=== PATIENT | female | born 1935 | race Caucasian/White ===

== ENCOUNTER → 2017-12-22 | Outpatient (CLI) | payer OTHER ==
[~2017-12-22] MED LIST: BAYER CHEWABLE81 MG PO; BIAXIN 500 MG500 M1 PO; BONIVA150 MG PO; FISH OIL 1,001000 M2 PO; FLEXERIL PO; FUROSEMIDE 20 M20 M1 PO; K-DUR 20 MEQ T20 MEQ; KLOR-CON 1010 MEQ PO; LASIX 20 MG TAB20 MG; LEVAQUIN 500 M500 M2 PO; MEDROL4 MG PO; MELOXICAM15 MG PO; MIACALCIN; NEURONTIN 300M300 M2 PO; NORCO 5-325 TA1 EACH PO; PERCOCET PO; PRAVACHOL40 MG PO; PREDNISONE 10 M10 M1 PO; PROTONIX40 MG PO; TIROSINT100 MCG PO; VENTOLIN HFA 1818 GM; VENTOLIN HFA 1818 GM INH; VITAMIN D32000 UNI1 PO
== END | disposition home or self-care (01) ==
LOC: M.RAD 12-20 10:00
DX: M16.11 Unilateral primary osteoarthritis, right hip (principal); M19.90 Unspecified osteoarthritis, unspecified site; J45.909 Unspecified asthma, uncomplicated; E03.9 Hypothyroidism, unspecified; Z88.2 Allergy status to sulfonamides; Z88.8 Allergy status to other drugs, medicaments and biological substances; Z79.82 Long term (current) use of aspirin; Z79.899 Other long term (current) drug therapy; Z79.891 Long term (current) use of opiate analgesic; Z90.710 Acquired absence of both cervix and uterus; Z98.890 Other specified postprocedural states

== ENCOUNTER → 2018-05-02 | Outpatient (CLI) | payer OTHER ==
[~2018-05-02] MED LIST changes: +LIPITOR 20 MG T20 M1 PO; +OXYCONTIN10 M1 PO
--- NOTE | ~2018-05-02 | PAINCON ---
[address] [address] PAIN MANAGEMENT CONSULTATION Name: BARAK BORGES Room: [facility] KRISTEN Zacarias#: [id number] Admission: 05/02/18 Attend Phys: Jose Luis Gaffney MD Discharge: Date of : 35 Report #: [id number] THIS REPORT FOR: //name// CC: Rajani Gaffney DATE OF SERVICE: 05/02/2018 CHIEF COMPLAINT: Lumbar pain and hip pain. FOLLOWUP HISTORY: The patient is an 82-year-old female, who has been referred to the Pain Clinic for evaluation of hip pain. She is having pain and discomfort in the right hip. Also, she has knee pain and has had injections in her knees in the past. She rates her pain as a 6-7/10. She has had back surgery in the lumbar area. She complains of hip pain with arthritis. She also has an aching sensation in the arch of her left foot. She ambulates, but uses a wheelchair. She uses a walker while at home. She has been told that she is not a surgical candidate at this juncture, she is not a candidate for hip replacement. She is using gabapentin, meloxicam, and oxycodone to help control her pain. She feels that her pain is about 10% controlled with use of her medication. She has pain, which is exacerbated by activity, cold, walking, sitting, standing, climbing stairs, lifting, and bending. She notes that her pain is somewhat improved with use of medications. ALLERGIES: FENOPROFEN, SULFA, PRAVASTATIN, CLARITHROMYCIN, SIMVASTATIN, FLUVASTATIN, BONIVA, DETROL, VYTORIN. CURRENT MEDICATIONS: Albuterol inhaler 2 puffs p.r.n., aspirin 81 mg, Lipitor 20 mg, vitamin D3 2000 units, fish oil 1000 mcg 2 tablets twice daily, Lasix 20 mg, Neurontin 300 mg q.i.d., levothyroxine 0.1 mg, Meloxicam 15 mg, oxycodone 5/325 one p.o. q. 6 hours p.r.n., Protonix 40 mg, potassium 20 mEq. PAST MEDICAL HISTORY: Hypertension, bilateral lower extremity neuropathy, hyperlipidemia, osteoporosis, lumbar spinal stenosis, lumbar radiculopathy, bilateral lower extremity venous stasis, phlebitis. PAST SURGICAL HISTORY: Infrared coagulation of bilateral varicose veins, hysterectomy in 1984, carpal tunnel in 1979, left and right, two back surgeries L3 through S1 in 2010 in June and November, teeth surgery in 1968. 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 REVIEW OF SYSTEMS: She wears glasses, hearing loss, mouth sores, swelling of feet, bowel changes, painful bowels, frequent urination, thyroid disease, excessive thirst, cold intolerance, joint pain, joint stiffness, [place] [address] PAIN MANAGEMENT CONSULTATION Name: BARAK BORGES Room: [facility] Rell#: [id number] Admission: 05/02/18 Attend Phys: Jose Luis Gaffney MD Discharge: Date of : 35 Report #: [id number] weakness, muscle cramps, difficulty walking, change in hair and nails, varicose veins, numbness and tingling sensation, tremors, phlebitis. LABORATORY AND DIAGNOSTIC DATA: On 03/11/2017, hip and pelvis findings of severe arthritis or degenerative narrowing of the right hip joint space identified with fuwq-vu-fosz appearance and remodeling of both articular surfaces and bulky femoral head margin osteophytes. There is not an upright view, but does demonstrate possible pelvic tilt. The left hip space is not grossly narrowed. Surgical changes of the lower lumbar spine partially visualized. Impression: Advanced arthritis and degenerative narrowing of the right hip joint space. Possible pelvic tilt, which could be better assessed with upright. PAIN CLINIC ASSESSMENT/PQRS: 1. The patient has arthritic changes in her hip as well as in her knees. 2. The patient is not being treated for rheumatoid arthritis. 3. Height 5 feet 0 inches, weight 202 pounds, BMI is 39.6. 4. Blood pressure 134/72, heart rate 53, respiratory rate 16, room air saturation 98%, temperature is 97.8. 5. Pain intensity: 6-7/10. 6. Fall risk: The patient has not fallen in the last 3 months. 7. Blood thinner: The patient is not on a blood thinning medication. 8. Hypertension: The patient is being treated for hypertension. 9. Opioids greater than 6 weeks: The patient is using opioid medications to help control her pain. 10. Risk assessment tool: Low for opioid use. 11. Functional assessment tool. 12. Recreational drug use: The patient denies use of recreational drugs. 13. Tobacco: The patient denies use of tobacco. 14. Alcohol: The patient denies use of alcoholic beverages. PHYSICAL EXAMINATION: GENERAL: The patient is a well-developed, white female. She appears her stated age. She is somewhat obese. HEENT: Normocephalic, atraumatic. Extraocular eye muscles intact. The patient is wearing glasses. HEART: Regular rate. ABDOMEN: Nontender. MUSCULOSKELETAL: She complains of some pain and discomfort in the lower extremities, right leg with numbness and tingling, left leg numbness and tingling in the calf area as well. Upper extremity muscle strength is judged to be 4+/5 for the major muscle groups in the upper extremity. The patient is in a wheelchair. She complains of pain and discomfort in the right lower extremity as well as in the left knee, pain in the low back and buttocks area, posterior L5-S1 dermatomal distribution on both sides, increased pain [place] [address] PAIN MANAGEMENT CONSULTATION Name: BARAK BORGES Room: [facility].#: [id number] Admission: 05/02/18 Attend Phys: Jose Luis Gaffney MD Discharge: Date of : 35 Report #: [id number] IMPRESSION: 1. Chronic pain, osteoarthritic pain in the right hip with erhu-wn-jmlj. 2. Bilateral knee pain. 3. Hypertension. 4. Bilateral lower extremity neuropathy. 5. Hyperlipidemia. 6. Osteoporosis. 7. Lumbar spinal stenosis. 8. Lumbar radiculopathy. 9. Bilateral lower extremity venous stasis. 10. Phlebitis. RECOMMENDATIONS: We discussed treatment options with the patient. At this juncture, she is not a good candidate for surgery. She has ngce-tv-ajdf pain. We will supply the patient with OxyContin 10 mg 1 p.o. q. 12 hours. The patient can continue with Percocet 1 p.o. q. 4-6 hours p.r.n. Hopefully, the longer long-acting OxyContin medication will provide more pain relief. She will try this for the next week. Hopefully, she will find the pain is better maintained. The patient has been given a script for her medications. She will call us if she has any concerns. We would like to thank you for letting us participate in her care. We hope she continues to improve. By: [id number]. Lauro Gaffney MD /nt
== END ==
LOC: M.PC 09:40
DX: M54.16 Radiculopathy, lumbar region (principal); M48.061 Spinal stenosis, lumbar region without neurogenic claudication; M16.11 Unilateral primary osteoarthritis, right hip; M25.561 Pain in right knee; M25.562 Pain in left knee; M81.0 Age-related osteoporosis without current pathological fracture; G62.9 Polyneuropathy, unspecified; I10 Essential (primary) hypertension; I80.9 Phlebitis and thrombophlebitis of unspecified site; I87.2 Venous insufficiency (chronic) (peripheral); Z79.899 Other long term (current) drug therapy

== ENCOUNTER → 2018-06-01 | Outpatient (CLI) | payer OTHER ==
[~2018-06-01] MED LIST changes: +METHADONE HCL5 MG PO; +XTAMPZA ER9 MG PO
--- NOTE | ~2018-06-01 | PAINCON ---
[address] [address] PAIN MANAGEMENT CONSULTATION Name: BARAK BORGES Room: [facility] Rell#: [id number] Admission: 06/01/18 Attend Phys: Jose Luis Gafnfey MD Discharge: Date of : 35 Report #: [id number] THIS REPORT FOR: //name// CC: Rajani Gaffney DATE OF SERVICE: 06/01/2018 CHIEF COMPLAINT: Low back and hip pain. HISTORY: The patient is an 83-year-old female who has been seen in the pain clinic because of right hip pain. Also, has knee pain and has undergone injections. She has had back surgery. Complains of some hip pain with arthritis. Has a sensation of aching in the arch of her feet. Ambulates with use of wheelchair. Uses a walker while she is at home. The patient at this point, unfortunately is not a surgical candidate. She is not a candidate for hip replacement. She is being treated with a conservative approach using gabapentin, meloxicam, oxycodone to help control her pain. She has returned today for evaluation of her medications. ALLERGIES: FENOPROFEN, SULFA, PRAVASTATIN, CLARITHROMYCIN, SIMVASTATIN, FLUVASTATIN, BONIVA, DETROL, VYTORIN. CURRENT MEDICATIONS: Albuterol inhaler 2 puffs p.r.n., aspirin 81 mg, Lipitor 20 mg, vitamin D3 2000 units, fish oil 1000 mcg 2 tablets twice daily, Lasix 20 mg, Neurontin 300 mg q.i.d., levothyroxine 0.1 mg, Meloxicam 15 mg, oxycodone 5/325 one p.o. q. 6 hours, Protonix 40 mg, potassium 20 mEq. PAIN CLINIC ASSESSMENT AND PQRS: 1. The patient has arthritic changes involving her hip as well as her knees. She is not being treated for rheumatoid arthritis. 2. Height 5 feet 0 inches, weight 202 pounds, BMI is 39.6. 3. Vital Signs: Blood pressure 130/63, heart rate is 53, respiratory rate 16, room air saturation 98%, temperature 98. 4. Pain intensity 09/16. 5. Fall history. The patient has not fallen in the last 3 months. 6. Blood thinner. The patient is not on a blood thinning medication. 7. Hypertension. The patient is being treated for hypertension. 8. Opioids greater than 6 weeks. The patient is using opioid medications to help control her pain. 9. Risk assessment tool, low for opioid use. 10. Functional assessment tool. 11. Recreational drug use. The patient denies use of recreational drugs. 12. Tobacco: The patient denies use of tobacco. 13. Alcohol: The patient [place] [address] PAIN MANAGEMENT CONSULTATION Name: BARAK BORGES [id number] Admission: 06/01/18 Attend Phys: Jose Luis Gaffney MD Discharge: Date of : 35 Report #: [id number] PHYSICAL EXAMINATION: GENERAL: The patient is a well-developed, well-nourished white female. Appears her stated age. She is alert and oriented. She has a family member that is with her. She is wearing glasses. HEART: Regular rate. ABDOMEN: Nontender. MUSCULOSKELETAL: The patient complains of pain and discomfort in the lower extremities. Right leg has numbness and tingling. Left leg soreness with tingling into the calf area. Her upper extremity muscle strength is judged to be 4+/5 for the major muscle groups in the upper extremity. The patient is in a wheelchair. Complains of pain and discomfort in her right lower extremity as well as down into the left knee. Low back area and buttocks areas are areas of discomfort as well. The L5-S1 dermatomal distribution is problematic on both sides. Notes increased pain in the right hip. IMPRESSION: 1. Chronic pain, osteoarthritic pain in the right hip with sveu-ip-akvc problems. 2. Bilateral knee pain. 3. Hypertension. 4. Bilateral lower extremity neuropathy. 5. Hyperlipidemia. 6. Osteoporosis. 7. Lumbar spinal stenosis. 8. Lumbar radiculopathy. 9. Bilateral lower extremity venous stasis. 10. Phlebitis. RECOMMENDATIONS: We discussed treatment options with the patient. At this juncture, we will continue to increase the patient's medication as she is able to tolerate it. A script for OxyContin 10 mg 1 p.o. has been written. A 2 weeks of medication has been supplied to the patient, the patient will take a 5 mg of Percocet medication in the morning and OxyContin 10 mg. If she still has pain and discomfort in the evening, she will take an additional 5 mg, which would be a total of 20 mg of oxycodone per day. She will call us if she has any concerns. We would like to thank you for letting us participate in her care. We hope she continues to improve. By: [id number]. Lauro Gaffney MD /BARBY
== END ==
LOC: M.PC 04:22
DX: G89.29 Other chronic pain (principal); M16.11 Unilateral primary osteoarthritis, right hip; E78.5 Hyperlipidemia, unspecified; M81.0 Age-related osteoporosis without current pathological fracture; M54.16 Radiculopathy, lumbar region; M48.061 Spinal stenosis, lumbar region without neurogenic claudication; I10 Essential (primary) hypertension; M17.0 Bilateral primary osteoarthritis of knee; Z79.899 Other long term (current) drug therapy; Z88.8 Allergy status to other drugs, medicaments and biological substances; Z88.1 Allergy status to other antibiotic agents; Z79.891 Long term (current) use of opiate analgesic

== ENCOUNTER → 2018-07-04 | Outpatient (CLI) | payer OTHER ==
[~2018-07-04] MED LIST changes: +PERCOCET 5-3251 EACH PO
--- NOTE | 2018-07-06 01:33 | PAINCON ---
[address] [address] PAIN MANAGEMENT CONSULTATION Name: BARAK BORGES Room: [facility] KRISTEN Zacarias#: [id number] Admission: 07/04/18 Attend Phys: Jose Luis Gaffney MD Discharge: Date of : 35 Report #: [id number] THIS REPORT FOR: //name// CC: Rajani Gaffney DATE OF SERVICE: 07/04/2018 CHIEF COMPLAINT: Low back pain. HISTORY: The patient is an 83-year-old female who has been seen in the Pain Clinic because of chronic pain. She has pain in her knee. She has undergone injections. She has had back surgery. She continues to have some pain in her hip, associated with arthritis. She has pain in the arch of her feet. She ambulates using a wheelchair. She uses a walker when at home. She has difficulty getting to and from the doctor's office. She describes her pain as involving the low back with pain radiating down into her right leg, involving the right foot. She feels that the Xtampza has helped about 30-40%. She feels that the oxycodone tablets also are helpful. She feels that this mix of medication is helpful. It does not totally eradicate her pain but certainly makes her life more comfortable. She notes the pain is worse with activities, walking, sitting, standing, going from sitting to standing, bending. She feels that her medications as well as rest are helpful and curtailing her discomfort. ALLERGIES: FENOPROFEN, SULFA, PRAVASTATIN, CLARITHROMYCIN, SIMVASTATIN, FLUVASTATIN, BONIVA, DETROL, VYTORIN. CURRENT MEDICATIONS: Albuterol inhaler 2 puffs, aspirin 81 mg, Lipitor 20 mg, vitamin D3 of 2000 units, fish oil 1000 mcg two tablets, Lasix 20 mg, Neurontin 300 mg q.i.d., levothyroxine 0.1 mg, meloxicam 15 mg, oxycodone 5 mg one p.o. q. six hours two tablets daily, Protonix 40 mg, potassium 40 mEq. PAIN CLINIC ASSESSMENT/PQRS: 1. The patient has arthritic changes involving her hip as well as in her knees. She is not being treated for rheumatoid arthritis. 2. Height 5 feet 0 inches, weight 204 pounds, BMI is 40. 3. Vital Signs: Blood pressure 143/62, heart rate 58, respiratory rate 16, room air saturation 95%, temperature 98.3. 4. Pain intensity: 8/10. 5. Fall history: The patient has not fallen in the last 3 months. 6. Blood thinner: The patient is not on a blood thinning medication. 7. Hypertension: The patient is being treated for hypertension. 8. Opioids greater than 6 weeks: The patient is using opioid medications as provided by the Pain Clinic. 9. Risk assessment tool: Low for opioid use. 10. Functional [place] [address] PAIN MANAGEMENT CONSULTATION Name: BARAK BORGES Room: [facility]#: [id number] Admission: 07/04/18 Attend Phys: Jose Luis Gaffney MD Discharge: Date of : 35 Report #: [id number] 11. Recreational drug use: The patient denies. 12. Tobacco: The patient denies use of tobacco. 13. Alcohol: The patient denies use of alcoholic beverages. PHYSICAL EXAMINATION: GENERAL: The patient is a well-developed, well-nourished white female. She appears her stated age. She is alert and oriented x 3. Her affect is appropriate. Her son is with her. She is wearing glasses. HEENT: Normocephalic, atraumatic. Extraocular eye muscles intact. Sclerae nonicteric. Mucous membranes moist. NECK: Without adenopathy or JVD. ABDOMEN: Protuberant. Bowel sounds present. MUSCULOSKELETAL: The patient has pain and discomfort in the lower extremities. She has right leg numbness and tingling, left leg soreness with tingling down into her calves. The patient's muscle strength is judged to be 4+/5 for the major muscle groups in the lower extremity. The patient is in a wheelchair. The patient has some L5-S1 dermatomal distribution changes on both left and right side. She notes also increased pain in her right hip. IMPRESSION: 1. Chronic pain, osteoarthritis in the right hip with jryr-ye-monb problems. 2. Bilateral knee pain. 3. Hypertension. 4. Bilateral lower extremity neuropathy. 5. Hyperlipidemia. 6. Osteoporosis. 7. Lumbar spinal stenosis. 8. Lumbar radiculopathy. 9. Bilateral lower extremity venous stasis. 10. Phlebitis history. RECOMMENDATIONS: We discussed treatment options with the patient. Risks and benefits of opioid medication were discussed. We have explained problems with opioid medications. They could be beneficial initially. One can develop addiction to the medication. The patient also can find the medications are less effective over a prolonged period of time secondary to tolerance. The patient feels that this regimen is better than what she was on when she first came. She feels that the oxycodone taken in the morning with Xtampza ER 9 mg, which is a timed-release oxycodone medication, is helpful. She takes the oxycodone in the morning. She also takes Xtampza. She notes that the Xtampza starts to wear off after a number of hours and as evening occurs, she then takes her second dose of oxycodone. She finds that this has been working reasonably well. She has had no complications. She continues to monitor herself for constipation and uses MiraLax and Senokot. She states that she is having some problems with her eyes. She is beginning to see words in a zig-zagged arrangement. She is going to see an eye doctor in the near future. She is not a candidate for [place] [address] PAIN MANAGEMENT CONSULTATION Name: BORGESBARAKSUDEEP TEJADA Room: [facility] Rell#: [id number] Admission: 07/04/18 Attend Phys: Jose Luis Gaffney MD Discharge: Date of : 35 Report #: [id number] told that she was inoperable. Since she has plfe-km-pejd pain, I think that her current medical regimen is reasonable. We will continue with her medications. We will give her 2 months. She will follow up in 2 months. Should she have problems with her medications or any concerns, she will call the Pain Clinic and be seen earlier than that if need be. We would like to thank you for letting us participate in her care. We hope she continues to improve. <ELECTRONICALLY SIGNED> By: Jose Luis Gaffney MD 07/06/18 0133 [id number]. Lauro Gaffney MD /nico
== END ==
LOC: M.PC 08:31
DX: M48.061 Spinal stenosis, lumbar region without neurogenic claudication (principal); M54.16 Radiculopathy, lumbar region; M16.11 Unilateral primary osteoarthritis, right hip; M25.561 Pain in right knee; M25.562 Pain in left knee; M81.0 Age-related osteoporosis without current pathological fracture; G62.9 Polyneuropathy, unspecified; I10 Essential (primary) hypertension; E78.5 Hyperlipidemia, unspecified; I87.2 Venous insufficiency (chronic) (peripheral); Z86.72 Personal history of thrombophlebitis

== ENCOUNTER → 2018-08-29 | Outpatient (CLI) | payer OTHER ==
--- NOTE | ~2018-08-29 | PAINCON ---
[address] [address] PAIN MANAGEMENT CONSULTATION Name: BARAK BORGES Room: [facility] Gonsalo.#: [id number] Admission: 08/29/18 Attend Phys: Jose Luis Gaffney MD Discharge: Date of : 35 Report #: [id number] THIS REPORT FOR: //name// CC: Rajani Gaffney DATE OF SERVICE: 08/29/2018 CHIEF COMPLAINT: Here for medicine and the physical therapy, has left knee sore. HISTORY: The patient is an 83-year-old female who has been followed in the pain clinic. She has chronic pain involving her low back as well as her right hip. She has had back surgery. Continues to have pain associated with arthritis in her right hip. She generally ambulates using a wheelchair. Uses a walker when she is at home. She has difficulty getting to physical therapy. She has had physical therapist/occupational therapist visit her at home. She has been given a series of exercises to try. She states that the marching leg and activity with assistance cause some increased discomfort. Notes that swinging her leg in and out is uncomfortable and noticed that lifting her leg and massage somewhat painful. She states that she has lost about 20 pounds since April. She feels that the Xtampza has been helpful, but is not as effective as it was, we initially started it. Continues to use the oxycodone tablets and finds that they are beneficial as well. She has a history of low platelets. States that her platelets were in about the 90,000 range. Her doctor will follow up on that should they decrease. She has a boil on the top of her head. This has been present for about the last 3 weeks. She has been treated with fluconazole. Her granddaughter states that this is about one-third the size it was prior to that treatment. She rates her pain as an 8-9/10 at this point. ALLERGIES: FENOPROFEN, SULFA, PRAVASTATIN, CLARITHROMYCIN, SIMVASTATIN, FLUVASTATIN, BONIVA, DETROL, AND VYTORIN. CURRENT MEDICATIONS: Albuterol inhaler 2 puffs, aspirin 81 mg, Lipitor 20 mg, vitamin D3 2000 units, fish oil 1000 mcg 2 tablets, Lasix 20 mg, Neurontin 300 mg q.i.d., levothyroxine 0.1 mg, meloxicam 15 mg, oxycodone 5 mg 1 p.o. q.6 hours p.r.n. 2 tablets daily, Protonix 40 mg, and potassium 40 mEq. PAIN CLINIC ASSESSMENT/PQRS: 1. The patient has osteoarthritic changes involving her hip as well as her knees. She is not being treated for rheumatoid arthritis. 2. Height 5 feet 0 inches, weight 174 pounds, BMI is 33.9. 3. Vital signs: Blood pressure 137/49, heart rate 60, respiratory rate 18, room air saturation is 97%, temperature 97.8. 4. Pain intensity 9-10/10[place] [address] PAIN MANAGEMENT CONSULTATION Name: BARAK BORGES [id number] Admission: 08/29/18 Attend Phys: Jose Luis Gaffney MD Discharge: Date of : 35 Report #: [id number] 5. Fall history: The patient has not fallen in the last 3 months. 6. Blood thinner. The patient is not on a blood thinning medication, but does have low platelets, per her report. 7. Hypertension. The patient is being treated for hypertension. 8. Opioids greater than 6 weeks. The patient received medication from the pain clinic. 9. Risk assessment tool, low for opioid use. 10. Functional assessment tool. 11. Recreational drug use. The patient denies use of recreational drugs. 12. Tobacco: The patient denies use of tobacco. 13. Alcohol: The patient denies use of alcoholic beverage. PHYSICAL EXAMINATION PRESENT ILLNESS: GENERAL: The patient is a well-developed, well-nourished white female. She appears her stated age of 83 years. She is accompanied by her granddaughter. She is wearing glasses. HEENT: Normocephalic, atraumatic. Extraocular eye muscles intact. Sclerae nonicteric. Mucous membranes are moist. NECK: Without adenopathy or JVD. ABDOMEN: Protuberant. Bowel sounds are present. MUSCULOSKELETAL: The patient has pain and discomfort in her lower extremity. Complains of pain in her right leg with pain and discomfort down into her calves. Movement of her right leg in the hip area as well as in the knee area has caused some increased discomfort after physical therapy. Also, complains of some straightening movements, which have caused increased pain and discomfort. The patient states that she has jmcq-zv-laqq pain involving her right hip. She is in a wheelchair. Notes an increase in pain with movement. IMPRESSION: 1. Chronic pain, osteoarthritis of the right hip with rtgz-gb-ihso problems. 2. Bilateral knee pain. 3. Hypertension. 4. Bilateral lower extremity neuropathy. 5. Hyperlipidemia. 6. Osteoarthritis. 7. Lumbar spinal stenosis. 8. Lumbar radiculopathy. 9. Bilateral lower extremity venous stasis. 10. Phlebitis history. RECOMMENDATIONS: We discussed treatment options with the patient and her granddaughter. We explained to the patient that opioid medications can be helpful. They will be beneficial and provide some pain relief. We explained to the patient that they will not totally relieve pain. She does complain of some pain and discomfort, particularly with physical therapy. She notes that the activities of moving her leg, moving her hip, [place] [address] PAIN MANAGEMENT CONSULTATION Name: BARAK BORGES [id number] Admission: 08/29/18 Attend Phys: Jose Luis Gaffney MD Discharge: Date of : 35 Report #: [id number] exacerbate the pain, she is experiencing on the left side. We explained to the patient that if she does not move her joints. They will freeze in place. She will have greater and greater restriction in her movement as time goes by. We explained to the patient that opioid medications can be helpful. They can become less effective over time due to development of tolerance. The only thing that we know of that generally we will help that would be to undergo a drug holiday where she comes off the medications for a couple of months and then resume this. Overall, she feels that things are going reasonably well with her medication, albeit she is not getting the relief that she would like. We have encouraged her to continue with physical therapy. I explained to her that the only person that will suffer from an increase and worsening pain would be the patient. If they do not try to continue with physical therapy and increased movement to maintain functionality. A script for her medications of oxycodone/Xtampza 9 mg 1 p.o. daily, have been written. She will follow up in the future as needed. We explained to the patient to take her oxycodone medications prior to physical therapy. A script for Percocet 5 mg 1 p.o. b.i.d. have been written as well. The patient will call us if she has any concerns. We would like to thank you for letting us participate in her care. We hope she continues to improve. By: [id number]. Lauro Gaffney MD /BARBY
== END ==
LOC: M.PC 05:20
DX: Z76.0 Encounter for issue of repeat prescription (principal); M48.061 Spinal stenosis, lumbar region without neurogenic claudication; M54.16 Radiculopathy, lumbar region; M16.11 Unilateral primary osteoarthritis, right hip; G89.29 Other chronic pain; M19.90 Unspecified osteoarthritis, unspecified site; I10 Essential (primary) hypertension; G62.9 Polyneuropathy, unspecified; E78.5 Hyperlipidemia, unspecified; Z88.2 Allergy status to sulfonamides; Z88.1 Allergy status to other antibiotic agents; Z88.8 Allergy status to other drugs, medicaments and biological substances; Z79.899 Other long term (current) drug therapy; Z79.01 Long term (current) use of anticoagulants; Z79.891 Long term (current) use of opiate analgesic

== ENCOUNTER → 2018-10-24 | Outpatient (CLI) | payer OTHER ==
[~2018-10-24] MED LIST changes: +FLUOCINOLONE AC15 GM TOP
--- NOTE | ~2018-10-24 | PAINCON ---
[address] [address] PAIN MANAGEMENT CONSULTATION Name: BARAK BORGES Room: [facility] Rell#: [id number] Admission: 10/24/18 Attend Phys: Jose Luis Gaffney MD Discharge: Date of : 35 Report #: [id number] THIS REPORT FOR: //name// CC: Rajani Gaffney DATE OF SERVICE: 10/24/2018 CHIEF COMPLAINT: Chronic pain in the hips, back, thigh, knee. HISTORY: The patient is an 83-year-old female who has been followed in the pain clinic because of chronic pain. The patient has had chronic pain for a number of years. She is rating the pain at 8-9/10 today. The patient is not a surgical candidate. She has brittle bones. She has difficulty walking. States that it hurts to walk. She uses a walker while in her house. She uses a wheelchair when she is out and about. She feels that she is trapped in her home. She has been having some pain in the right part of her leg. It radiates down the lateral side and describes it as "sharp shooting pain." Does have a lesion on her head. She describes it as a boil. She is scheduled to have this evaluated by a surgeon. She feels that the Xtampza medication just barely touches her pain. She notes that the pain is worse with activity such as walking, sitting. Pain increases when she is "moving wrong." ALLERGIES: FENOPROFEN, SULFA, PRAVASTATIN, CLARITHROMYCIN, SIMVASTATIN, FLUVASTATIN, BONIVA, DETROL, VYTORIN. CURRENT MEDICATIONS: Albuterol inhaler 2 puffs, aspirin 81 mg, Lipitor 20 mg, vitamin D3 2000 units, fish oil 1000 mcg 2 tablets, Lasix 20 mg, Neurontin 300 mg q.i.d., levothyroxine 0.1 mg, meloxicam 15 mg, oxycodone 5 mg 1 p.o. q. 6 hours p.r.n., 2 tablets daily, Protonix 40 mg, potassium 40 mEq. PAIN CLINIC ASSESSMENT AND PQRS: 1. The patient has osteoarthritic changes involving her hip as well as her knees. She is not being treated for rheumatoid arthritis. 2. Height 5 feet 0 inch, weight 196 pounds, BMI is 38. 3. Vital signs: Blood pressure 114/48, heart rate 57, respiratory rate 16, room air saturation 95%. 4. Temperature 97.9. 5. Pain intensity 8-9/10. 6. Fall history: The patient has not fallen in the last 3 months. 7. Blood thinner. The patient is not on a blood thinning medication. The patient does have low platelets. 8. Hypertension. The patient is being treated for hypertension. 9. Opioids greater than 6 weeks. The patient receives medication from one source, the pain clinic. 10. Risk assessment tool, [place] [address] PAIN MANAGEMENT CONSULTATION Name: BARAK BORGES Room: [facility] KRISTEN Zacarias#: [id number] Admission: 10/24/18 Attend Phys: Jose Luis Gaffney MD Discharge: Date of : 35 Report #: [id number] 11. Functional assessment tool. 12. Recreational drug use. The patient denies use of recreational drugs. 13. Tobacco: The patient denies use of tobacco. 14. Alcohol. The patient denies use of alcoholic beverages. PHYSICAL EXAMINATION: GENERAL: The patient is a well-developed, well-nourished white female. Appears her stated age. She is alert and oriented x 3. Her affect is appropriate. She is accompanied by her son. HEENT: Normocephalic, atraumatic. Extraocular eye muscles intact. Sclerae nonicteric. Mucous membranes are moist. NECK: Without adenopathy or JVD. ABDOMEN: Protuberant. Bowel sounds present. MUSCULOSKELETAL: The patient has pain and discomfort in the lower extremities. Complains of some pain and discomfort that radiates down the right lateral portion of her leg in the lancinating fashion. The patient has some hip pain. This is on the right side. Complains of vrbi-ss-aguk discomfort involving her right hip. She is in a wheelchair. Notes increased pain with activity. IMPRESSION: 1. Chronic pain, osteoarthritis of the right hip with skrv-cs-zhcx problems. 2. Bilateral knee pain. 3. Hypertension. 4. Bilateral lower extremity neuropathy. 5. Hyperlipidemia. 6. Osteoarthritis. 7. Lumbar spinal stenosis. 8. Lumbar radiculopathy. 9. Bilateral lower extremity venous stasis. 10. Phlebitis history. RECOMMENDATIONS: We discussed treatment options with the patient. At this juncture, we will continue with her medications. We will continue with oxycodone 5/325 one p.o. q.i.d., a total of 60 tablets 1 p.o. daily. The patient will also continue with Xtampza, oxycodone 9 mg 1 tablet daily. The patient is aware that opioid medications can be helpful, but can be less effective as time progresses. She feels that she is homebound. She is confined to her home. Has difficulty ambulating outside of her home. States that she does have a ramp that she uses to get into her home. She is unable to navigate up the ramp because of the difficulty of the ramp. She and I have discussed possible options. Maybe she can get a carlitos placed on the ramp to help pull her up. Maybe she can get an electrical motor to help pull her up. States that she might consider one of the crank similar to what the use when sportsmen use a boat to roll the boat up on to the trailer. This has given her some ideas of what direction to try to increase her ability to be more independent. She will call us if [place] [address] PAIN MANAGEMENT CONSULTATION Name: BARAK BORGES TERRELL Room: [facility].#: [id number] Admission: 10/24/18 Attend Phys: Jose Luis Gaffney MD Discharge: Date of : 35 Report #: [id number] We would like to thank you for letting us participate in her care. We hope she continues to improve. By: [id number]. Lauro Gaffney MD /BARBY
== END ==
LOC: M.PC 05:13
DX: M48.061 Spinal stenosis, lumbar region without neurogenic claudication (principal); M47.816 Spondylosis without myelopathy or radiculopathy, lumbar region; G89.29 Other chronic pain; M25.561 Pain in right knee; M25.562 Pain in left knee; I10 Essential (primary) hypertension; M19.90 Unspecified osteoarthritis, unspecified site; E78.5 Hyperlipidemia, unspecified; G57.83 Other specified mononeuropathies of bilateral lower limbs; Z88.8 Allergy status to other drugs, medicaments and biological substances; Z88.2 Allergy status to sulfonamides; Z79.899 Other long term (current) drug therapy

== ENCOUNTER → 2018-12-26 | Outpatient (CLI) | payer OTHER ==
--- NOTE | 2019-01-02 09:26 | PAINCON ---
[facility] [address] [place] [address] PAIN MANAGEMENT CONSULTATION Name: BARAK BORGES Room: [facility] KRISTEN Zacarias#: [id number] Admission: 12/26/18 Attend Phys: Jose Luis Gaffney MD Discharge: Date of : 35 Report #: [id number] THIS REPORT FOR: //name// CC: Rajani Gaffney DATE OF SERVICE: 12/26/2018 CHIEF COMPLAINT: Here for evaluation. HISTORY: The patient still has pain in her right hip, right thigh and this has been somewhat problematic for a number of years. Overall, she feels that her medications are helpful. She does find it is harder to walk and move around. Weather has changed. She has had physical therapy in the past. She is not sure how much she felt that this was helping. She has been followed by her outside plant cable engineer for some boils on her head. These seem to be better. She has been given an ointment to place in this area. Rates her pain today as an 8/10. Overall, feels that she is about 50% improved with her current medical regimen. She uses her cane when at home, rides in a wheelchair when she is out in public. Does have some difficulty getting to and from the pain clinic because she is unable to drive. She has 2 sons. They live some distance from her. She is somewhat concerned that she may not be able to make it to the pain clinic in the winter months. She has returned today for renewal of her medication. She feels that the Xtampza medication is helpful. She would like to continue its use. ALLERGIES: FENOPROFEN, SULFA, PRAVASTATIN, CLARITHROMYCIN, SIMVASTATIN, FLUVASTATIN, BONIVA, DETROL, VYTORIN. CURRENT MEDICATIONS: Albuterol inhaler 2 puffs p.r.n., aspirin 81 mg, Lipitor 20 mg, vitamin D3 2000 units, fish oil 1000 mcg 2 tablets, Lasix 20 mg, Neurontin 300 mg q.i.d., levothyroxine 0.1 mg, meloxicam 15 mg, oxycodone 5 mg 1 p.o. q.6 hours p.r.n., 2 tablets daily, Protonix 40 mg, potassium 40 mEq. PAIN CLINIC ASSESSMENT/PQRS: 1. The patient has some arthritic changes involving her hip as well as her knees. She is not being treated for rheumatoid arthritis. 2. Height 5 feet 0 inch, weight 196 pounds, BMI is 38. 3. Vital signs: Blood pressure 118/55, heart rate 59, respiratory rate 16, room air saturation 94%, temperature 98.0. 4. Pain intensity is 8/10. 5. Fall history: The patient has not fallen in the last 3 months. 6. Blood thinner. The patient is not on a blood thinning medication. 7. Hypertension. The patient is being treated for hypertension. 8. Opioids greater than 6 weeks. 9. The patient receives medication from [place] [address] PAIN MANAGEMENT CONSULTATION Name: BARAK BORGES Room: [facility]#: [id number] Admission: 12/26/18 Attend Phys: Jose Luis Gaffney MD Discharge: Date of : 35 Report #: [id number] 10. Risk assessment tool, low for opioid use. 11. Functional assessment tool has been reviewed. 12. Recreational drug use: The patient denies. 13. Alcohol: The patient denies. 14. Tobacco: The patient denies use of tobacco. PHYSICAL EXAMINATION: GENERAL: The patient is a well-developed, well-nourished, somewhat obese white female, appears her stated age. She is alert and oriented x 3. She is accompanied by one of her sons. HEENT: Normocephalic, atraumatic. Extraocular eye muscles intact. Sclerae nonicteric. Mucous membranes are moist. NECK: Without adenopathy or JVD. ABDOMEN: Protuberant. Bowel sounds present. MUSCULOSKELETAL: The patient has pain and discomfort in lower portion of her back. Has pain that radiates down the lateral portion of her legs with some lancinating discomfort. Has some hip pain. Notes some pain and discomfort and moves from a sitting to a standing position using her hands. She is moved through the Pain Clinic in a wheelchair. IMPRESSION: 1. Chronic pain/osteoarthritis of the right hip and niqw-so-jlct problems. 2. Bilateral knee pain. 3. Hypertension. 4. Bilateral lower extremity neuropathy. 5. Hyperlipidemia. 6. Osteoarthritis. 7. Lumbar spinal stenosis. 8. Lumbar radiculopathy. 9. Bilateral lower extremity venous stasis. 10. Phlebitis history. RECOMMENDATIONS: We discussed treatment options with the patient. At this juncture, we will continue with her medications. We have explained that opioid medications can become less effective over time because of development of tolerance. The patient overall feels that things are going reasonably well. She has taken the medication as prescribed. She is not having any problems with her sensorium. She is able to engage in activities, she would not be able to without their use. She feels overall that things are about 50% improved. She has not had any problems with the Xtampza. A script for her medications has been rewritten. She will continue with the Percocet one p.o. b.i.d. and with the Xtampza one [place] [address] PAIN MANAGEMENT CONSULTATION Name: BARAK BORGES Room: [facility].#: [id number] Admission: 12/26/18 Attend Phys: Jose Luis Gaffney MD Discharge: Date of : 35 Report #: [id number] We would like to thank you for letting us participate in her care. We hope she continues to improve. <ELECTRONICALLY SIGNED> By: Jose Luis Gaffney MD 01/02/19 0926 [id number] 1536N. Lauro Gaffney MD /nt
== END ==
LOC: M.PC 12-19 10:30
DX: M16.11 Unilateral primary osteoarthritis, right hip (principal); M25.561 Pain in right knee; M25.562 Pain in left knee; E78.5 Hyperlipidemia, unspecified; M19.90 Unspecified osteoarthritis, unspecified site; M54.16 Radiculopathy, lumbar region; M48.061 Spinal stenosis, lumbar region without neurogenic claudication; I10 Essential (primary) hypertension

== ENCOUNTER → 2019-02-20 | Outpatient (CLI) | payer OTHER ==
[~2019-02-20] MED LIST changes: +NARCAN4 MG NARES
--- NOTE | ~2019-02-20 | PAINCON ---
[address] [address] PAIN MANAGEMENT CONSULTATION Name: BARAK BORGES Room: [facility] KRISTEN Zacarias#: [id number] Admission: 02/20/19 Attend Phys: Jose Luis Gaffney MD Discharge: Date of : 35 Report #: [id number] THIS REPORT FOR: //name// CC: Rajani Gaffney DATE OF SERVICE: 02/20/2019 CHIEF COMPLAINT: "I have had phlebitis, I have got brittle bones. Here for medication renewal. My knees hurt." HISTORY: The patient is an 83-year-old female who has been followed in the pain clinic because of chronic pain involving her hips and thighs and this has been going on for a number of years. She does note some increase in her pain. She feels that her medications are helpful in taking the edge off. She feels that the pain has worsened somewhat. The weather outside has become more variable. It has gotten cold outside and wet weather has made it more problematic as well. She rates her pain as a 9/10. She notes that the pain is worse when she is walking, sometimes with sitting. Pain in the past has been about 50% improved with use of her current medications. She is not having any problems with mentation, not have any new problems with bowel or bladder function. She feels that the Xtampza continues to be helpful and is not cause any problems. ALLERGIES: FENOPROFEN, SULFA, PRAVASTATIN, CLARITHROMYCIN, SIMVASTATIN, FLUVASTATIN, BONIVA, DETROL AND VYTORIN. CURRENT MEDICATIONS: Albuterol inhaler 2 puffs p.r.n., aspirin 81 mg, Lipitor 20 mg, vitamin D3 2000 units, fish oil 1000 mcg 2 tablets, Lasix 20 mg, Neurontin 300 mg q.i.d., levothyroxine 0.1 mg, meloxicam 15 mg, oxycodone 5 mg one every 4-6 hours p.r.n., 2 tablets daily, Protonix 40 mg, and potassium 40 mEq. PAIN CLINIC ASSESSMENT AND PQRS: 1. The patient has some arthritic changes involving her hips as well as in her knees. She is not being treated for rheumatoid arthritis. 2. Height 5 feet 0 inch, weight 196 pounds, BMI is 38. 3. Vital signs: Blood pressure 139/51, heart rate 50, respiratory rate 18, room air saturation 96%, temperature 97.5. Pain score 9/10. 4. Fall history: The patient has not fallen in the last 3 months. 5. Blood thinner. The patient is not on a blood thinning medication. 6. Hypertension. The patient is being treated for hypertension. 7. Opioids greater than 6 weeks. Medications, the patient receives medication from the pain clinic. 8. Risk assessment tool, low for opioid use. 9. Functional assessment tool. This has been reviewed. 10. Recreational drug use: [place] [address] PAIN MANAGEMENT CONSULTATION Name: BARAK BORGES Room: [facility] Rell#: [id number] Admission: 02/20/19 Attend Phys: Jose Luis Gaffney MD Discharge: Date of : 35 Report #: [id number] 11. Alcohol: The patient denies. 12. Tobacco: The patient denies. PHYSICAL EXAMINATION: GENERAL: The patient is a well-developed, well-nourished white female. Appears her stated age. She is somewhat obese. She is alert and oriented x 3. She is accompanied by her son. HEENT: Normocephalic, atraumatic. Extraocular eye muscles intact. Sclerae nonicteric. Mucous membranes are moist. The patient wears glasses. NECK: Without adenopathy or JVD. ABDOMEN: Protuberant. Bowel sounds present. MUSCULOSKELETAL: The patient has some discomfort in lower portion of her back and complaints of pain that radiates down into her legs with some pain in her hip. She notes some discomfort while going from a sitting to a standing position using her hands. The patient is in a wheelchair. IMPRESSION: 1. Chronic pain/osteoarthritis of the right hip with nueg-vy-vkys involvement. 2. Bilateral knee pain. 3. Hypertension. 4. Bilateral lower extremity neuropathy. 5. Hyperlipidemia. 6. Osteoarthritis. 7. Lumbar spinal stenosis. 8. Lumbar radiculopathy. 9. Bilateral lower extremity venous stasis. 10. Phlebitis history. RECOMMENDATIONS: We discussed treatment options with the patient. Risks and benefits of use of opioids again have been reviewed. The patient is aware that opioid medications can become less effective over time secondary to development of tolerance. She feels that her medications are working reasonably well. There are no problems with sedation. She is able to think clearly. No real complaints of constipation or bowel or bladder dysfunction. We will continue with her medications of Xtampza 9 mg 1 p.o. daily and Percocet 5 mg 1 p.o. b.i.d. The patient will call us if she has any concerns. Her son will contact if he has any concerns regarding her condition as well. We would like to thank you for letting us participate in her care. We hope she continues to improve. By: [id number]. MD colin Asencio
== END ==
LOC: M.PC 11:50
DX: G89.29 Other chronic pain (principal); M25.561 Pain in right knee; M25.562 Pain in left knee; E78.5 Hyperlipidemia, unspecified; M19.90 Unspecified osteoarthritis, unspecified site; M48.061 Spinal stenosis, lumbar region without neurogenic claudication; M54.16 Radiculopathy, lumbar region

== ENCOUNTER 2019-04-13 20:41 | Emergency (ER) | payer OTHER ==
[~2019-04-13] VITALS: Ht 152.4 cm; Wt 88.5 kg
[2019-04-14 00:29] VITALS: BP 141/57
[2019-04-17] MEDS ORDERED: PERCOCET 5-3251 EACH PO ×2 (11:14→11:30)
[2019-04-17] MEDS ORDERED: XTAMPZA ER9 MG PO ×2 (11:14→11:30)
== END 2019-04-14 00:30 | disposition home or self-care (01) ==
LOC: M.ERS 20:41
DX: S93.401A Sprain of unspecified ligament of right ankle, initial encounter (principal); E78.00 Pure hypercholesterolemia, unspecified; E03.9 Hypothyroidism, unspecified; Z90.710 Acquired absence of both cervix and uterus; Z79.82 Long term (current) use of aspirin; Z88.2 Allergy status to sulfonamides; Z88.1 Allergy status to other antibiotic agents; Z88.8 Allergy status to other drugs, medicaments and biological substances; X50.1XXA Overexertion from prolonged static or awkward postures, initial encounter; Y93.89 Activity, other specified; Y92.89 Other specified places as the place of occurrence of the external cause; Y99.8 Other external cause status

== ENCOUNTER → 2019-04-17 | Outpatient (CLI) | payer OTHER ==
--- NOTE | 2019-05-04 09:00 | PAINCON ---
[address] [address] PAIN MANAGEMENT CONSULTATION Name: BARAK BORGES Room: [facility].Delmy.#: [id number] Admission: 04/17/19 Attend Phys: Jose Luis Gaffney MD Discharge: Date of : 35 Report #: [id number] THIS REPORT FOR: //name// cc: Rajani Farrar MD, Katrina MD THIS REPORT FOR: //name// CC: Rajani Gaffney The patient was seen on 04/17/2019 by Lauro Gaffney. CHIEF COMPLAINT: "I twisted my right ankle and fell and strained it and now I have a splint on it. HISTORY: The patient is an 83-year-old female, who was seen in the pain clinic on 04/17/2019. The patient states that she was walking and twisted her ankle. She almost fell. Her ankle was strained and she had a splint placed on it. She is unable to walk on it very much. Has pain in her right hip, which radiates down into her leg and into the low back area. This has been problematic in this area for a number of years. She has been on an antibiotic. She has been treated for a urinary tract infection with an antibiotic. She rates her pain as a 9/10 today. She has returned today for renewal of her medications. ALLERGIES: FENOPROFEN, SULFA, PRAVASTATIN, CLARITHROMYCIN, SIMVASTATIN, FLUVASTATIN, BONIVA, DETROL, VYTORIN. CURRENT MEDICATIONS: Albuterol inhaler 2 puffs p.r.n., aspirin 81 mg, Lipitor 20 mg, vitamin D3 2000 units, fish oil 1000 mcg 2 tablets, Lasix 20 mg, Neurontin 300 mg q.i.d., levothyroxine 0.1 mg, meloxicam 15 mg, oxycodone 5 mg q.4-6h. p.r.n., Protonix 40 mg, potassium 40 mEq, Xtampza ER 9 mg daily. PAIN CLINIC ASSESSMENT AND PQRS: 1. The patient has some arthritic changes involving her hips as well as pain in her knees. She twisted her ankle while walking. 2. She is not being treated for rheumatoid arthritis. 3. Height 5 feet 0, weight 195 pounds, BMI is 38. 4. Vital signs: Blood pressure 126/69, heart rate 55, respiratory rate 16, room air saturation 96%, temperature 97.3. 5. Pain score 9/10. 5. Fall history: The patient tripped and fell straining her ankle. 6. Blood thinner. The patient is not on a blood thinning medication. 7. Hypertension. The patient is being treated for hypertension. 8. Opioids greater than 6 weeks. The patient receives medications from the Pain Clinic. 9. Risk assessment tool, [place] [address] PAIN MANAGEMENT CONSULTATION Name: BARAK BORGES [facility] [id number] Admission: 04/17/19 Attend Phys: Jose Luis Gaffney MD Discharge: Date of : 35 Report #: [id number] 10. Functional assessment tool have been reviewed. 11. Recreational drug use: The patient denies. 12. Alcohol: The patient denies. 13. Tobacco: The patient denies. PHYSICAL EXAMINATION: GENERAL: The patient is a well-developed, well-nourished white female. Appears her stated age. She is alert and oriented x 3. Her affect appears appropriate. She is accompanied by her son. HEENT: Normocephalic, atraumatic. Extraocular eye muscles intact. The patient is wearing glasses. NECK: Without adenopathy. ABDOMEN: Protuberant. Bowel sounds present. MUSCULOSKELETAL: Upper extremity muscle strength judged to be 4+/5 for the major muscle groups of the upper extremity. The patient has pain and discomfort that radiates down into her legs. Complains of pain and discomfort in her right ankle, which was twisted. The patient is in a wheelchair. IMPRESSION: 1. Chronic pain/osteoarthritis of the right hip with mwuu-zo-gjnp involvement. 2. Bilateral knee pain. 3. Hypertension. 4. Bilateral lower extremity neuropathy. 5. Recent twist and spraining of right ankle with splint. 6. Hyperlipidemia. 7. Osteoarthritis. 8. Lumbar spinal stenosis. 9. Lumbar radiculopathy. 10. Bilateral lower extremity venous stasis. 11. Phlebitis history. RECOMMENDATIONS: We discussed treatment options with the patient. At this juncture, we will continue with her medications. She feels that the medications continue to be helpful. A script for the opioid medications have been rewritten. She is aware that opioid medications can become less effective as time goes on. The patient will continue with her Percocet 5 mg 1 p.o. b.i.d. She will take a long-acting medication, Xtampza ER 9 mg 1 p.o. daily. The patient will call us if she has any concerns. We would like to thank you for letting us participate in her care. Hopefully, her ankle which has been strained will continue to improve. <ELECTRONICALLY SIGNED> By: Jose Luis Gaffney MD 05/04/19 0900 1543 1623N. Lauro Gaffney MD /nico
== END ==
LOC: M.PC 04:41
DX: M16.11 Unilateral primary osteoarthritis, right hip (principal); M25.562 Pain in left knee; M25.561 Pain in right knee; I10 Essential (primary) hypertension; M54.16 Radiculopathy, lumbar region; M48.061 Spinal stenosis, lumbar region without neurogenic claudication; M19.90 Unspecified osteoarthritis, unspecified site; E78.5 Hyperlipidemia, unspecified; Z79.891 Long term (current) use of opiate analgesic; Z79.899 Other long term (current) drug therapy

== ENCOUNTER → 2019-07-10 | Outpatient (CLI) | payer OTHER ==
--- NOTE | 2019-07-27 08:03 | PAINCON ---
[facility] [address] [place] [address] PAIN MANAGEMENT CONSULTATION Name: BARAK BORGES Room: [facility] RosendoMilagro#: [id number] Admission: 07/10/19 Attend Phys: Jose Luis Gaffney MD Discharge: Date of : 35 Report #: [id number] THIS REPORT FOR: //name// cc: Rajani Farrar MD, Katrina MD ~ THIS REPORT FOR: //name// CC: Rajani Gaffney DATE OF SERVICE: 07/10/2019 CHIEF COMPLAINT: Right hip, leg and low back pain. HISTORY: The patient is an 84-year-old female who has been followed in the pain clinic for quite some time. She continues to have pain, which is quite problematic. She has some pain involving her right hip and right leg. She has continued to undergo home health therapy. In the last 2 weeks, she has had treatment courses. She feels like she is getting somewhat stronger. Continues to have some pain and discomfort in the right leg and right hip. She uses a wheelchair while at home. She is having some sharp, stabbing discomfort. She finds that her medications help and make her pain tolerable. She notes walking and other activities can be problematic. She does feel that her medications are helpful. Pain is worse in the mornings. ALLERGIES: FENOPROFEN, SULFA, PRAVASTATIN, CLARITHROMYCIN, SIMVASTATIN, FLUVASTATIN, BONIVA, DETROL, and VYTORIN. CURRENT MEDICATIONS: Albuterol inhaler 2 puffs, aspirin 81 mg, Lipitor 20 mg, vitamin D3 2000 units, fish oil 1000 mg 2 tablets, Lasix 20 mg, Neurontin 300 mg q.i.d., levothyroxine 0.1 mg, meloxicam 15 mg, oxycodone 15 mg one p.o. q 4-6 hours, Protonix 40 mg, potassium 40 mEq, Xtampza 9 mg. PAIN CLINIC ASSESSMENT AND PQRS: 1. The patient has some arthritic changes involving her hips as well as her knees. She has twisted her right ankle. She is not being treated for rheumatoid arthritis. 2. Height 5 feet 0, weight 195 pounds, BMI 38. 3. Vital signs: Blood pressure 142/68, heart rate 49, respiratory rate 16, room air saturation 98%, temperature 97.8. 4. Pain score 8/10. 5. Fall history: The patient has not fallen since we saw her last. 6. Blood thinner. The patient is not on a blood thinning medication. 7. Hypertension. The patient is being treated for hypertension. 8. Opioids greater than 6 weeks. The patient receives medication [place] [address] PAIN MANAGEMENT CONSULTATION Name: BARAK BORGES Room: [facility]#: [id number] Admission: 07/10/19 Attend Phys: Jose Luis Gaffney MD Discharge: Date of : 35 Report #: [id number] 9. Risk assessment tool, low for opioid use. 10. Functional assessment tool has been reviewed. 11. Recreational drug use. The patient denies. 12. Alcohol: The patient denies. 13. Tobacco: The patient does not smoke. PHYSICAL EXAMINATION: GENERAL: The patient is a well-developed, well-nourished white female. Appears her age of 84. She is unaccompanied. HEENT: Normocephalic, atraumatic. Extraocular eye muscles intact. ABDOMEN: Protuberant. Bowel sounds present. MUSCULOSKELETAL: Upper extremity muscle strength judged to be 4+/5 for the major muscle groups in the upper extremity. The patient has pain and discomfort in the lower portion of her back. Complains of pain in the right hip down into her leg and in the low back areas, which has been problematic for a number of years. The patient is in a wheelchair. IMPRESSION: 1. Chronic pain/osteoarthritis of the right hip with qkwk-re-wgoi involvement, bilateral knee pain. 2. Hypertension. 3. Bilateral lower extremity neuropathy. 4. History of spraining right ankle in splint. 5. Hyperlipidemia. 6. Osteoarthritis. 7. Lumbar spinal stenosis. 8. Lumbar radiculopathy. 9. Bilateral lower extremity venous stasis. 10. Phlebitis ____. RECOMMENDATIONS: We discussed treatment options with the patient. At this juncture, we will continue with her medications of Percocet and Xtampza. The risk and benefits of these medications were again reviewed. The patient is aware that they are opioid medications. She is aware that these medications can become less effective as time goes on because of development of tolerance. She has been provided a script for 2 months of medication. She has also been provided a naloxone spray should she have problems with respiratory depression while taking these medications. We would like to thank you for letting us participate in her care. Hopefully, she will continue to progress with the aid of physical therapy. <ELECTRONICALLY SIGNED> By: Jose Luis Gaffney MD 07/27/19 0803 [id number] 1300N. Lauro Gaffney MD /nt
== END ==
LOC: M.PC 04:51
PROVIDERS: ATTEND Anesthesiology Pain Medicine
DX: M54.16 Radiculopathy, lumbar region (principal); M25.551 Pain in right hip; I10 Essential (primary) hypertension; E78.5 Hyperlipidemia, unspecified; M19.90 Unspecified osteoarthritis, unspecified site; M48.061 Spinal stenosis, lumbar region without neurogenic claudication; I80.9 Phlebitis and thrombophlebitis of unspecified site; I87.2 Venous insufficiency (chronic) (peripheral); F11.20 Opioid dependence, uncomplicated; G62.9 Polyneuropathy, unspecified; Z88.8 Allergy status to other drugs, medicaments and biological substances; Z79.899 Other long term (current) drug therapy

== ENCOUNTER → 2019-09-04 | Outpatient (CLI) | payer OTHER ==
--- NOTE | 2019-09-05 09:00 | PAINCON ---
[facility] [address] [place] [address] PAIN MANAGEMENT CONSULTATION Name: BARAK BORGES Room: [facility] RosendoGeraldine.#: [id number] Admission: 09/04/19 Attend Phys: Jose Luis Gaffney MD Discharge: Date of : 35 Report #: [id number] THIS REPORT FOR: //name// cc: Rajani Farrar MD, Katrina MD ~ THIS REPORT FOR: //name// CC: Rajani Gaffney DATE OF SERVICE: 09/04/2019 CHIEF COMPLAINT: Right hip pain, low back pain. "My son drove about 2 hours to pick me up." HISTORY: The patient is an 84-year-old female who has been followed in the pain clinic because of chronic pain. She has pain in the back as well as pain that radiates down into her leg. She describes it as a sharp pain. It is an 8-9 depending on the activity. She has been trying to increase her activity level. She is up and moving. She has resided in a wheelchair for some time. She is taking "baby steps." States that her legs are little bit unstable. She has knocked knee. Overall, she feels that her medications are helpful and she would like to continue their use. She is not having any problems with oversedation. She notes increased pain with walking, standing, going from a sitting to a standing position and with other activities. She feels her medications are beneficial. She feels about 30% improvement with use of her medications and would be less active without them. ALLERGIES: FENOPROFEN, SULFA, PRAVASTATIN, CLARITHROMYCIN, SIMVASTATIN, FLUVASTATIN, BONIVA, DETROL, VYTORIN. CURRENT MEDICATIONS: Albuterol 1 puff and albuterol puffer, aspirin 81 mg, Lipitor 20 mg, vitamin D3 2000 units, fish oil 1000 mg 2 tablets, Lasix 20 mg, Neurontin 300 mg q.i.d., levothyroxine 0.1 mg, meloxicam 15 mg, oxycodone 15 mg 1 q.4-6 hours, Protonix 40 mg, potassium 40 mEq, Xtampza 9 mg. PAIN CLINIC ASSESSMENT AND PQRS: 1. The patient has some osteoarthritic changes involving her hips as well as her knees. She has twisted her ankle on the right side in the past. She is not being treated for rheumatoid arthritis. 2. Height 5 feet 0 inch, weight 195 pounds, BMI is 38. 3. Vital Signs: Blood pressure 142/68, heart rate 49, respiratory rate 16, room air saturation is 98%, temperature is 97.8. 4. Pain score, 9/10. 5. Fall history. The patient has not fallen in the last 3 months. 6. Blood thinner. The patient is not [place] [address] PAIN MANAGEMENT CONSULTATION Name: BORGESBARAK D [facility] [id number] Admission: 09/04/19 Attend Phys: Jose Luis Gaffney MD Discharge: Date of : 35 Report #: [id number] 7. Hypertension. The patient is being treated for hypertension. 8. Opioids greater than 6 weeks. The patient received medication from the pain clinic. 9. Functional assessment tool, has been reviewed. 10. Recreational drug use. The patient denies. 11. Alcohol. The patient denies alcohol. 12. Tobacco. The patient does not smoke. PHYSICAL EXAMINATION: GENERAL: The patient is a well-developed, well-nourished, white female, somewhat obese. She is accompanied by her son. HEENT: Normocephalic, atraumatic. Extraocular eye muscles intact. Sclerae nonicteric. Mucous membranes are moist. The patient is wearing a mask. NECK: Without adenopathy or JVD. LUNGS: Generally clear. HEART: Regular rate. EXTREMITIES: Upper extremity muscle strength judged to be 4+/5 for the major muscle groups in the upper extremity. The patient has pain and discomfort in lower portion of her back. Complains of pain in her right hip and down into her leg and has pain in the low back areas. She is in a wheelchair. Muscle strength to the lower extremity judged to be 4+/5 for the major muscle groups in the lower extremity. The patient has a cane. IMPRESSION: 1. Chronic pain/osteoarthritis of the right hip with cugx-af-uird involvement, bilateral knee pain. 2. Hypertension. 3. Bilateral lower extremity neuropathy. 4. History of spraining the right ankle. 5. Hyperlipidemia. 6. Osteoarthritis. 7. Lumbar spinal stenosis. 8. Lumbar radiculopathy. 9. Bilateral lower extremity venous stasis. 10. History of phlebitis. RECOMMENDATIONS: We discussed treatment options with the patient. At this juncture, we will continue with her medications. A script for her medications have been provided. She will continue with the oxycodone 5 mg 1 p.o. b.i.d. as needed. She also will continue with the Xtampza (oxycodone slow release 12 mg capsules daily. The patient has been provided with naloxone to take in the event that respiratory problems arose. She will call us if she has any concerns. She has been sheltering at home. She states that she has some young [facility] [address] [place] [address] PAIN MANAGEMENT CONSULTATION Name: BARAK BORGES Room: [facility]#: [id number] Admission: 09/04/19 Attend Phys: Jose Luis Gaffney MD Discharge: Date of : 35 Report #: [id number] relatives that live with her. Hopefully, she will continue to do well. She will call if she needs. <ELECTRONICALLY SIGNED> By: Jose Luis Gaffney MD 09/05/19 09 1310 2132N. Lauro Gaffney MD /PMT
== END ==
LOC: M.PC 05:07
PROVIDERS: ATTEND Anesthesiology Pain Medicine
DX: M54.16 Radiculopathy, lumbar region (principal); M16.11 Unilateral primary osteoarthritis, right hip; M48.061 Spinal stenosis, lumbar region without neurogenic claudication; I10 Essential (primary) hypertension; G62.9 Polyneuropathy, unspecified; E78.5 Hyperlipidemia, unspecified; M19.90 Unspecified osteoarthritis, unspecified site; I87.8 Other specified disorders of veins; M25.562 Pain in left knee; Z86.72 Personal history of thrombophlebitis

== ENCOUNTER → 2019-10-30 | Outpatient (CLI) | payer OTHER ==
--- NOTE | ~2019-10-30 | PAINCON ---
[address] [address] PAIN MANAGEMENT CONSULTATION Name: BARAK BORGES Room: [facility].#: [id number] Admission: 10/30/19 Attend Phys: Jose Luis Gaffney MD Discharge: Date of : 35 Report #: [id number] THIS REPORT FOR: //name// cc: Rajani Farrar MD, Katrina MD ~ THIS REPORT FOR: //name// CC: Rajani Gaffney DATE OF SERVICE: 10/30/2019 CHIEF COMPLAINT: Right hip, leg and low back pain. HISTORY: The patient is an 84-year-old female who has been followed in the pain clinic because of chronic pain. She has returned to the pain clinic for evaluation. She rates her pain as an 8/10. She noticed some increased sharp pain in the mornings. She finds it harder and more difficult to do activities of daily living. Her pain at that point is usually 8-9 with activity. Pain starts to become somewhat improved in the afternoon. She takes pain medications at about 6 p.m. to help with the pain and discomfort. She is not finding herself oversedated. She notes that pain is worse with walking, standing, going from sitting to standing and with activities. She has found rest, medications and elevation of her legs to be helpful. ALLERGIES: FENOPROFEN, SULFA, PRAVASTATIN, CLARITHROMYCIN, SIMVASTATIN, FLUVASTATIN, BONIVA, DETROL, VYTORIN. CURRENT MEDICATIONS: Albuterol 1 puff p.r.n., aspirin 81 mg, Lipitor 20 mg, vitamin D3 2000 units, fish oil 1000 mg 2 tablets, Lasix 20 mg, Neurontin 300 mg q.i.d., levothyroxine 0.1 mg, Meloxicam 15 mg, oxycodone 15 mg one q 4-6 hours p.r.n., Protonix 40 mg, potassium 40 mEq, Xtampza 9 mg. PAIN CLINIC ASSESSMENT AND PQRS: 1. The patient has some pain involving her hips as well as in the knees. She has pain in her ankles. She is not being treated for rheumatoid arthritis. 2. Height 5 feet 0, weight 204 pounds, BMI is 39. 3. Vital Signs: Blood pressure 129/60, heart rate 54, respiratory rate 16, room air saturation 98%, temperature 97.7. 4. Pain intensity 8/10. 5. Fall history: The patient has not fallen in the last 3 months. 6. Blood thinner. The patient is not on a blood thinning medication. 7. Hypertension. The patient is being treated for hypertension. 8. Opioids greater than 6 weeks. The patient receives medication from the pain clinic. 9. Functional [place] [address] PAIN MANAGEMENT CONSULTATION Name: BARAK BORGES Room: [facility]#: [id number] Admission: 10/30/19 Attend Phys: Jose Luis Gaffney MD Discharge: Date of : 35 Report #: [id number] 10. Recreational drug use. The patient denies. 11. Alcohol: The patient denies. 12. Tobacco: The patient denies use of tobacco. PHYSICAL EXAMINATION: GENERAL: The patient is a well-developed, well-nourished white female. She is somewhat obese. She is accompanied by her son. She is in wheelchair. HEENT: Normocephalic, atraumatic. Extraocular eye muscles intact. The patient is wearing glasses. She has a mask in place. NECK: Without adenopathy. LUNGS: Generally clear. HEART: Regular rate. ABDOMEN: Protuberant. MUSCULOSKELETAL: Upper extremity muscle strength judged to be 4+/5 for the major muscle groups in the upper extremity. The patient has pain and discomfort in the lower portion of her back. She complains of pain in the right hip and pain radiating down into her other low back areas in her leg. Muscle strength in the lower extremity, judged to be 4+/5 for the major muscle groups in the lower extremity. The patient uses a cane to help ambulate. IMPRESSION: 1. Chronic pain/osteoarthritis of the right hip with jdjb-ci-mrzy involvement. 2. Bilateral knee pain. 3. Hypertension. 4. Bilateral lower extremity neuropathy. 5. History of sprained right ankle. 6. Hyperlipidemia. 7. Osteoarthritis. 8. Lumbar spinal stenosis. 9. Lumbar radiculopathy. 10. Bilateral lower extremity venous stasis. 11. History of phlebitis. RECOMMENDATIONS: We discussed treatment options with the patient. At this juncture, we will continue with her medication. A script for her medications have been renewed. She will continue with the oxycodone 5/325 one p.o. b.i.d. A script for 2 months of medication has been provided. The patient will also continue with oxycodone (Xtampza 9 mg daily). She will call us if she has any concerns. A script for Narcan has been provided for the patient in the past for Narcan should ____ [place] [address] PAIN MANAGEMENT CONSULTATION Name: BARAK BORGES Room: [facility]#: [id number] Admission: 10/30/19 Attend Phys: Jose Luis Gaffney MD Discharge: Date of : 35 Report #: [id number] We would like to thank you for letting us participate in her care. We hope she continues to improve. The patient is wearing a left ankle brace. By: [id number]. Lauro Gaffney MD /nt
== END ==
LOC: M.PC 09:07
PROVIDERS: ATTEND Anesthesiology Pain Medicine
DX: M54.16 Radiculopathy, lumbar region (principal); M79.604 Pain in right leg; G89.29 Other chronic pain; M16.11 Unilateral primary osteoarthritis, right hip; M25.561 Pain in right knee; M25.562 Pain in left knee; I10 Essential (primary) hypertension; G62.9 Polyneuropathy, unspecified; E78.5 Hyperlipidemia, unspecified; M48.061 Spinal stenosis, lumbar region without neurogenic claudication; Z87.39 Personal history of other diseases of the musculoskeletal system and connective tissue; Z76.82 Awaiting organ transplant status; Z88.8 Allergy status to other drugs, medicaments and biological substances; Z79.899 Other long term (current) drug therapy

== ENCOUNTER → 2019-12-25 | Outpatient (CLI) | payer OTHER ==
--- NOTE | 2020-01-10 14:42 | PAINCON ---
[facility] [address] [place] [address] PAIN MANAGEMENT CONSULTATION Name: BARAK BORGES Room: [facility] JIE RosendoMilagro#: [id number] Admission: 12/25/19 Attend Phys: Jose Luis Gaffney MD Discharge: Date of : 35 Report #: [id number] THIS REPORT FOR: //name// cc: Rajani Farrar MD, Katrina MD ~ CC: Rajani Gaffney DATE OF SERVICE: 12/25/2019 CHIEF COMPLAINT: Right hip, leg and low back pain. HISTORY: The patient is an 84-year-old female who has been followed in the pain clinic. She rates her pain today as an 8-9/10. She is having pain in the right hip, down the leg and has pain in her low back. She is not a surgical candidate at this juncture. Her pain continues to be quite problematic. She states today that the pain has a deeper edge. It makes it harder for her to get around. She feels that her medications are helpful, but feels that a stronger dose of the medication might be efficacious. The patient is scheduled to see an orthopedic doctor in the near future. The left hip and calf are quite problematic. She is also having knee pain. Activities such as walking, standing, and other activities of daily living are problematic. She feels that the oxycodone is helpful. She feels that the gabapentin medication along with meloxicam are beneficial as well. She is somewhat limited in her ability to ambulate because of this chronic pain. She has returned today for medication. She has taken her medication. She is not oversedated. ALLERGIES: FENOPROFEN, SULFA, PRAVASTATIN, CLARITHROMYCIN, SIMVASTATIN, FLUVASTATIN, BONIVA, DETROL, VYTORIN. CURRENT MEDICATIONS: Albuterol puffs 1 p.r.n., aspirin 81 mg, Lipitor 20 mg, vitamin D3 2000 units, fish oil 1000 mg 2 tablets, Lasix 20 mg, Neurontin 300 mg q.i.d., levothyroxine 0.1 mg, meloxicam 15 mg, oxycodone 15 mg one p.o. q.4-6 hours p.r.n., Protonix 40 mg, potassium 40 mEq, Xtampza 9 mg. PAIN CLINIC ASSESSMENT AND PQRS: 1. The patient has some pain involving her hips as well as in her knee. She has pain in her ankles. She is not being treated for rheumatoid arthritis. 2. Height 5 feet 0, weight 204 pounds, BMI is 39. 3. Vital Signs: Blood pressure 134/74, heart rate 57, respiratory rate 16, room air saturation is 96%, temperature 97.9. 4. Pain intensity 8-9/10 with activity. 5. Fall history: The patient has not fallen in the last 3 months. 6. Blood thinner. The patient is not on a blood thinning medication. 7. Hypertension. The patient is being treated for hypertension. 8. Opioids greater than 6 weeks. The [place] [address] PAIN MANAGEMENT CONSULTATION Name: BARAK BORGES Room: [facility]#: [id number] Admission: 12/25/19 Attend Phys: Jose Luis Gaffney MD Discharge: Date of : 35 Report #: [id number] clinic. 9. Risk assessment tool reviewed. 10. Recreational drug use: The patient denies. 11. Alcohol: The patient denies. 12. Tobacco: The patient denies use of tobacco. PHYSICAL EXAMINATION: GENERAL: The patient is a well-developed, well-nourished white female. She is somewhat obese. She is accompanied by her son. She is in a wheelchair. HEENT: Normocephalic, atraumatic. Extraocular eye muscles intact. The patient is wearing glasses. She has a mask in place. NECK: Without adenopathy. LUNGS: Somewhat clear, but decreased. HEART: Regular. ABDOMEN: Protuberant. MUSCULOSKELETAL: Upper extremity muscle strength judged to be 4+/5 for the major muscle groups in the upper extremity. The patient complains of pain and discomfort in her low back. Also, complains of pain in the right hip and notes that pain radiates down into the lower portion of her leg. Muscle strength judged to be 4+/5 for the major muscle groups in the lower extremity. The patient uses a cane when she ambulates at home. IMPRESSION: 1. Chronic pain/osteoarthritis of the right hip with xray-hx-cglk involvement. 2. Bilateral knee pain. 3. Hypertension. 4. Bilateral lower extremity neuropathy. 5. History of sprained right ankle. 6. Hyperlipidemia. 7. Osteoarthritis. 8. Lumbar spinal stenosis. 9. Lumbar radiculopathy. 10. Bilateral lower extremity venous stasis. 11. History of phlebitis. RECOMMENDATIONS: We discussed treatment options with the patient. At this juncture, we will continue with the patient's medication. A script for her medications have been rewritten. She will continue with oxycodone 5 mg 1 p.o. b.i.d. She will also continue with Xtampza 9 mg per day. She will call us if she has any problems with her medications. [address] [place] [address] PAIN MANAGEMENT CONSULTATION Name: BARAK BORGES Room: [facility].#: [id number] Admission: 12/25/19 Attend Phys: Jose Luis Gaffney MD Discharge: Date of : 35 Report #: [id number] We would like to thank you for letting us participate in her care. We hope she continues to improve. <ELECTRONICALLY SIGNED> By: Jose Luis Gaffney MD 01/10/20 1442 [id number] 1654N. Lauro Gaffney MD /nt
== END ==
LOC: M.PC 08:35
PROVIDERS: ATTEND Anesthesiology Pain Medicine
DX: M25.551 Pain in right hip (principal); M79.604 Pain in right leg; M54.5 Low back pain

== ENCOUNTER → 2020-02-19 | Outpatient (CLI) | payer OTHER | LOC: M.PC 07:54 | PROVIDERS: ATTEND Anesthesiology Pain Medicine | DX: M54.16 Radiculopathy, lumbar region (principal); M25.551 Pain in right hip; M25.561 Pain in right knee; M25.562 Pain in left knee; G62.9 Polyneuropathy, unspecified; E78.5 Hyperlipidemia, unspecified; M19.90 Unspecified osteoarthritis, unspecified site; M48.061 Spinal stenosis, lumbar region without neurogenic claudication; Z86.72 Personal history of thrombophlebitis; Z88.8 Allergy status to other drugs, medicaments and biological substances; Z79.899 Other long term (current) drug therapy ==

== ENCOUNTER → 2020-04-15 | Outpatient (CLI) | payer OTHER | LOC: M.PC 08:29 | PROVIDERS: ATTEND Anesthesiology Pain Medicine | DX: M54.16 Radiculopathy, lumbar region (principal); M16.11 Unilateral primary osteoarthritis, right hip; I10 Essential (primary) hypertension; G62.9 Polyneuropathy, unspecified; E78.5 Hyperlipidemia, unspecified; M48.061 Spinal stenosis, lumbar region without neurogenic claudication; I87.313 Chronic venous hypertension (idiopathic) with ulcer of bilateral lower extremity; Z88.8 Allergy status to other drugs, medicaments and biological substances; Z79.899 Other long term (current) drug therapy ==

== ENCOUNTER → 2020-06-12 | Outpatient (CLI) | payer OTHER | LOC: M.PC 06-10 08:40 | PROVIDERS: ATTEND Anesthesiology Pain Medicine | DX: M16.11 Unilateral primary osteoarthritis, right hip (principal); M48.061 Spinal stenosis, lumbar region without neurogenic claudication; M54.16 Radiculopathy, lumbar region; M25.561 Pain in right knee; M25.562 Pain in left knee; I10 Essential (primary) hypertension; G57.93 Unspecified mononeuropathy of bilateral lower limbs; E78.5 Hyperlipidemia, unspecified; M19.90 Unspecified osteoarthritis, unspecified site; Z88.8 Allergy status to other drugs, medicaments and biological substances ==

== ENCOUNTER → 2020-08-05 | Outpatient (CLI) | payer OTHER ==
[~2020-08-05] MED LIST changes: +PERCOCET 7.5-31 EAC1 PO
== END ==
LOC: M.PC 11:03
PROVIDERS: ATTEND Anesthesiology Pain Medicine
DX: M16.11 Unilateral primary osteoarthritis, right hip (principal); M25.561 Pain in right knee; M25.562 Pain in left knee; I10 Essential (primary) hypertension; G62.9 Polyneuropathy, unspecified; E78.5 Hyperlipidemia, unspecified; M19.90 Unspecified osteoarthritis, unspecified site; M54.16 Radiculopathy, lumbar region; M48.061 Spinal stenosis, lumbar region without neurogenic claudication; I87.8 Other specified disorders of veins; Z79.899 Other long term (current) drug therapy; Z79.891 Long term (current) use of opiate analgesic

== ENCOUNTER → 2020-09-23 | Outpatient (CLI) | payer OTHER ==
[~2020-09-23] MED LIST changes: +MIRALAX119 GM PO
== END ==
LOC: M.PC 10:27
PROVIDERS: ATTEND Anesthesiology Pain Medicine
DX: G89.29 Other chronic pain (principal); M16.11 Unilateral primary osteoarthritis, right hip; M25.561 Pain in right knee; M25.562 Pain in left knee; I10 Essential (primary) hypertension; E78.5 Hyperlipidemia, unspecified; M54.16 Radiculopathy, lumbar region; M48.061 Spinal stenosis, lumbar region without neurogenic claudication; I80.9 Phlebitis and thrombophlebitis of unspecified site; Z79.891 Long term (current) use of opiate analgesic; Z79.899 Other long term (current) drug therapy

== ENCOUNTER → 2020-11-18 | Outpatient (CLI) | payer OTHER | LOC: M.PC 07:45 | PROVIDERS: ATTEND Anesthesiology Pain Medicine | DX: G89.29 Other chronic pain (principal); M48.061 Spinal stenosis, lumbar region without neurogenic claudication; M54.16 Radiculopathy, lumbar region; E03.9 Hypothyroidism, unspecified; M25.561 Pain in right knee; M25.562 Pain in left knee; I10 Essential (primary) hypertension; E78.5 Hyperlipidemia, unspecified; M19.90 Unspecified osteoarthritis, unspecified site; I87.8 Other specified disorders of veins; Z79.899 Other long term (current) drug therapy; Z88.8 Allergy status to other drugs, medicaments and biological substances; Z88.1 Allergy status to other antibiotic agents; Z90.710 Acquired absence of both cervix and uterus ==

== ENCOUNTER → 2021-01-13 | Outpatient (CLI) | payer OTHER | LOC: M.PC 08:40 | PROVIDERS: ATTEND Anesthesiology Pain Medicine | DX: G89.29 Other chronic pain (principal); M16.11 Unilateral primary osteoarthritis, right hip; I10 Essential (primary) hypertension; G62.9 Polyneuropathy, unspecified; E78.5 Hyperlipidemia, unspecified; M19.90 Unspecified osteoarthritis, unspecified site; M48.061 Spinal stenosis, lumbar region without neurogenic claudication; M54.16 Radiculopathy, lumbar region ==

== ENCOUNTER → 2021-03-10 | Outpatient (CLI) | payer OTHER | LOC: M.PC 10:15 | PROVIDERS: ATTEND Anesthesiology Pain Medicine | DX: M48.061 Spinal stenosis, lumbar region without neurogenic claudication (principal); M54.16 Radiculopathy, lumbar region; M25.551 Pain in right hip; M79.604 Pain in right leg; M54.50 Low back pain, unspecified; M25.561 Pain in right knee; M25.562 Pain in left knee; I10 Essential (primary) hypertension; E78.5 Hyperlipidemia, unspecified; M19.90 Unspecified osteoarthritis, unspecified site; Z90.710 Acquired absence of both cervix and uterus; Z88.8 Allergy status to other drugs, medicaments and biological substances; Z79.899 Other long term (current) drug therapy ==